=== PATIENT | female | born 1975 | race Caucasian/White ===

== ENCOUNTER → 2019-06-24 | Outpatient (CLI) | payer BC ==
--- NOTE | 2019-06-24 12:18 | Diagnostic Imaging Report ---
INDICATION: Routine screening. No prior mammograms are available for comparison. This is a baseline study. 2-D and 3-D bilateral screening mammography was performed. The current study was also evaluated with a Computer Aided Detection (CAD) system. 3-D tomosynthesis was also performed and reviewed. FINDINGS: Patient has bilateral breast implants. Implant contours appear to be smooth. No mass or malignant-appearing microcalcifications are seen. Axillae are unremarkable. IMPRESSION: No mammographic features suspicious for malignancy are identified. ACR BI-RADS Category 2: Benign findings. Result letter will be mailed to the patient. Note: At least 10% of breast cancer is not imaged by mammography. Dictated by: Dictated on workstation # [id number]
== END ==
LOC: RAD 09:59
PROVIDERS: ATTEND Family Medicine
DX: Z12.31 Encounter for screening mammogram for malignant neoplasm of breast (principal)
CPT/HCPCS: 77067

== ENCOUNTER → 2019-11-29 | Outpatient (CLI) | payer BC ==
[2019-11-29 10:13] LABS: BASOPHILS % (AUTO) 0 % (0-10); EOSINOPHILS # (AUTO) 0.2 10^3/uL (0.0-0.3); EOSINOPHILS % (AUTO) 2 % (0-10); HEMATOCRIT 41 % (35-52); HEMOGLOBIN 13.9 G/DL (11.5-16.0); LYMPHOCYTES % (AUTO) 18 % (12-44); MEAN CORPUSCULAR HEMOGLOBIN 32 PG (25-34); MEAN CORPUSCULAR HGB CONC 34 G/DL (32-36); MEAN CORPUSCULAR VOLUME 94 FL (80-99); MEAN PLATELET VOLUME 10.1 FL (7.4-10.4); MONOCYTES # (AUTO) 0.6 X 10^3 (0.0-1.0); MONOCYTES % (AUTO) 5 % (0-12); NEUTROPHILS # (AUTO) 8.2 X 10^3 (1.8-7.8); NEUTROPHILS % (AUTO) 74 % (42-75); PLATELET COUNT 220 10^3/uL (130-400)
[2019-11-29 10:20] LABS: CHLORIDE 103 MMOL/L (98-107); POTASSIUM 3.6 MMOL/L (3.6-5.0); SODIUM 138 MMOL/L (135-145)
[2019-11-29 10:22] LABS: GLUCOSE 96 MG/DL (70-105); TOTAL PROTEIN 7.5 GM/DL (6.4-8.2)
[2019-11-29 10:23] LABS: CARBON DIOXIDE 24 MMOL/L (21-32)
[2019-11-29 10:24] LABS: BILIRUBIN,TOTAL 0.3 MG/DL (0.1-1.0)
[2019-11-29 10:25] LABS: ALKALINE PHOSPHATASE 81 U/L (40-136); CREATININE SERUM 0.88 MG/DL (0.60-1.30); GFR ESTIMATED > 60
[2019-11-29 10:27] LABS: BUN/CREATININE RATIO 14
[2019-11-29 10:28] LABS: ALANINE AMINOTRANSFERASE 16 U/L (0-55)
[2019-11-29 10:29] LABS: CREATINE KINASE 160 U/L (29-168)
== END ==
LOC: RAD 09:45
PROVIDERS: ATTEND Nurse Practitioner Family
DX: I10 Essential (primary) hypertension (principal)
CPT/HCPCS: 36415; 80053; 82550; 84443; 84484; 85025; 93005

== ENCOUNTER → 2019-12-25 | Outpatient (CLI) | payer BC ==
[~2019-12-25] VITALS: Ht 160 cm; Wt 81.0 kg
[~2019-12-25] MED LIST: CATHETER FLUSH 10 ML SYR IV PRN
[2019-12-25 11:11] LABS: CHOLESTEROL 268 MG/DL (< 200); HDL CHOLESTEROL 49 MG/DL (40-60); TRIGLYCERIDES 143 MG/DL (<150); VLDL CHOLESTEROL 29 MG/DL (5-40)
[2019-12-25 13:41] VITALS: BP 134/89
--- NOTE | 2019-12-26 09:21 | Cardiology Stress Test Report ---
Stress Test Report Date of Procedure/Referring: Date of Procedure: Dec 26, 2019 PCP Jessica Weiss MD Admitting Physician Ritesh Alamo MD Indications: Chest pain Baseline Heart Rate: 73 Baseline Blood Pressure: Blood Pressure Systolic: 134 Blood Pressure Diastolic: 89 Vital Signs Date Time Temp Pulse Resp B/P (MAP) Pulse Ox O2 Delivery O2 Flow Rate FiO2 8/10/08 13:41 73 16 134/89 (104) 95 Room Air Baseline Vital Signs Vital Signs Date Time Temp Pulse Resp B/P (MAP) Pulse Ox O2 Delivery O2 Flow Rate FiO2 8 13:41 73 16 134/89 (104) 95 Room Air Summary: After explaining the procedure and details to the patient, she signed the consent and was brought to the stress nuclear laboratory. Patient exercised on standard Cash protocol, EKG, heart rate and blood pressure were monitored continuously, resting and stress doses of radio tracer were injected, imaging was acquired and reviewed in the short axis, horizontal long axis and vertical long axis views Patient was able to exercise for a total of [ 8:30] minutes on Cash protocol, METs 10.3 Maximum heart rate 169 Maximum blood pressure 147/89 Stress EKG, Minimal nondiagnostic changes Recovery EKG, Return to baseline TID: 0.57 SSS: 6 SDS: 0 EF: 71 Conclusion: 1. Good exercise tolerance for a total of 8 minutes 30 seconds on Cash protocol total of 10.3 METs achieving 94 percent of max expected heart rate 2. Appropriate heart rate and blood pressure response to exercise returned to baseline during recovery 3. Minimal nondiagnostic EKG changes with exercise returned to baseline during recovery 4. Extracardiac attenuation, there is fixed defect at the anteroapical segment, though significant ischemia or infarction was noted on SPECT images 5. Normal LV size with EF 71 percent JESSICA WEISS MD Dec 26, 2019 09:21
== END ==
LOC: CARD 10:36
PROVIDERS: ATTEND Internal Medicine Cardiovascular Disease
DX: I11.9 Hypertensive heart disease without heart failure (principal); Z82.49 Family history of ischemic heart disease and other diseases of the circulatory system
CPT/HCPCS: 78452; 80061; 93017; 93306; A9502; 36415